=== PATIENT | male | born 1965 | race Caucasian/White ===

== ENCOUNTER 2017-08-01 11:29 | Emergency (ER) | payer OTHER ==
[2017-08-01 11:46] VITALS: TEMP 98.1; BMI 29.7
--- NOTE | 2017-08-01 11:59 | PDOC ---
History of Present Illness - General Chief Complaint: Pain, Acute Stated Complaint: LT SIDE PAIN Time Seen by Provider: 08/01/17 11:59 - History of Present Illness Initial Comments: 08/01/17 12:14 Mr. Wolf is a 51 yo male w/ pmh of HTN and NIDDM who presents for evaluation of sudden onset left sided abdominal pain that started as he was driving into work today. He reports he has never had pain like this before. He had one episode of vomiting before presentation he reports consisted of the food he had eaten and had more vomiting while in the ER bay. He ate one chocolate donut and a pretzel for breakfast. The patient denies chest pain, shortness of breath, headache and dizziness. Denies fever, chills, diarrhea and constipation. Denies dysuria, frequency, urgency and hematuria. Allergies: Amoxicillin Past History - Past Medical History Allergies/Adverse Reactions: Allergies Allergy/AdvReac Type Severity Reaction Status Date / Time amoxicillin Allergy Verified 08/01/17 11:42 Home Medications: Ambulatory Orders Tamsulosin HCl [Flomax] 0.4 mg PO DAILY #7 cap.er.[id number] 08/01/17 COPD: No Diabetes: Yes HTN: Yes - Suicide/Smoking/Psychosocial Hx Smoking History: Never smoked Review of Systems - Review of Systems Comments:: 08/01/17 12:45 GENERAL/CONSTITUTIONAL: No fever or chills. No weakness. HEAD, EYES, EARS, NOSE AND THROAT: No change in vision. No ear pain or discharge. No sore throat. CARDIOVASCULAR: No chest pain or shortness of breath RESPIRATORY: No cough, wheezing, or hemoptysis. GASTROINTESTINAL: +Pain w/ n/v as described. No diarrhea or constipation. GENITOURINARY: No dysuria, frequency, or change in urination. MUSCULOSKELETAL: No joint or muscle swelling or pain. No neck or back pain. SKIN: No rash NEUROLOGIC: No headache, vertigo, loss of consciousness, or change in strength/ sensation. ENDOCRINE: No increased thirst. No abnormal weight change HEMATOLOGIC/LYMPHATIC: No anemia, easy bleeding, or history of blood clots. ALLERGIC/IMMUNOLOGIC: No hives or skin allergy. *Physical Exam - Vital Signs Last Vital Signs Temp Pulse Resp BP Pulse Ox 98.1 F 99 H 23 157/121 98 08/01/17 11:42 08/01/17 11:42 08/01/17 11:42 08/01/17 11:42 08/01/17 11:42 - Physical Exam Comments: 08/01/17 12:47 GENERAL: Awake, alert, and fully oriented, in no acute distress HEAD: No signs of trauma, normocephalic, atraumatic EYES: PERRLA, EOMI, sclera anicteric, conjunctiva clear ENT: Auricles normal inspection, hearing grossly normal, nares patent, oropharynx clear without exudates. Moist mucosa NECK: Normal ROM, supple, no lymphadenopathy, JVD, or masses LUNGS: No distress, speaks full sentences, clear to auscultation bilaterally HEART: Regular rate and rhythm, normal S1 and S2, no murmurs, rubs or gallops, peripheral pulses normal and equal bilaterally. ABDOMEN: +Left flank TTP. Soft, normoactive bowel sounds. No guarding, no rebound. No masses EXTREMITIES: Normal inspection, Normal range of motion, no edema. No clubbing or cyanosis. NEUROLOGICAL: Cranial nerves II through XII grossly intact. Normal speech, normal gait, no focal sensorimotor deficits SKIN: Warm, Dry, normal turgor, no rashes or lesions noted. ED Treatment Course - LABORATORY CBC & Chemistry Diagram: 08/01/17 12:45 08/01/17 12:45 Medical Decision Making - Medical Decision Making 08/01/17 15:06 Mr. Wolf is a 51 yo male w/ pmh as described who presents for evaluation of sudden onset abdominal pain concerning for acute nephrolithiasis. Patient given fluids and morphine for pain control with scan ordered for confirmation. CT significant for 1 to 2 mm ureteral calculus just proximal to UVJ with associated hydronephrosis and perirenal stranding. 08/01/17 15:34 Labs as below significant for elevated creatinine and white count as below. Suspect patient is hemoconcentrated. Urology consulted. 08/01/17 16:05 Discussed patient with urology who will follow outpatient on friday. Patient reports he feels "1000 times better" on repeat exam. Discharging with instructions to f/u with urology for further evaluation. *DC/Admit/Observation/Transfer Diagnosis at time of Disposition: Nephrolithiasis - Discharge Dispostion Disposition: HOME - Referrals Referrals: Chau Yost MD [Staff Physician] - - Patient Instructions Printed Discharge Instructions: DI for Kidney Stones Additional Instructions: Please follow-up with urology on Friday as discussed for further evaluation. Bring lab values and CT read to your appointment. Return to ER if any difficulty urinating, pain not controllable with proscribed medications, or other concerning symptoms. Take all medications as written. - Post Discharge Activity
[2017-08-01] MEDS ORDERED: ONDANSETRON 4 MG/2 ML VIAL IVPB ONE (12:15)
[2017-08-01] MEDS ORDERED: morphine CARPU-JECT 2 MG/1 ML DISP.SYRIN IVPUSH ONE ×3 (12:15→14:36)
[2017-08-01] MEDS ORDERED: SODIUM CHLORIDE 1,000 ML IV STA (12:15)
[2017-08-01] MEDS ORDERED: morphine SULFATE 4 MG/ML VIAL ONE (12:48)
[2017-08-01] MEDS ORDERED: ONDANSETRON 4 MG/2 ML VIAL ONE (12:49)
[2017-08-01 13:01] LABS: BASO % 0.1 % (0-2.0); EOS % 0.5 % (0-4.5); HEMATOCRIT 47.4 % (35.4-49); HEMOGLOBIN 15.9 GM/dL (11.7-16.9); LYMPH % 8.9 % (8-40); MCH 27.1 pg (25.7-33.7); MCHC 33.5 g/dl (32.0-35.9); MEAN CELL VOLUME 80.9 fl (80-96); MEAN PLT VOLUME 8.9 fl (7.5-11.1); NEUT % 86.5 % (42.8-82.8); PLATELET COUNT 242 K/MM3 (134-434); RBC 5.86 M/mm3 (4.00-5.60); RDW 13.2 % (11.9-15.9); WHITE BLOOD COUNT 14.5 K/mm3 (4.0-10.0)
[2017-08-01 13:22] LABS: INR 0.94 (0.82-1.09); PROTHROMBIN TIME (PATIENT) 10.6 SEC (9.7-13.0)
[2017-08-01 13:25] LABS: ACTIVATED PTT 26.6 SECONDS (25.2-36.5)
[2017-08-01 13:38] LABS: ALBUMIN 4.5 g/dl (3.4-5.0); ANION GAP 12 (8-16); BILIRUBIN,TOTAL 0.7 mg/dL (0.2-1.0); BLOOD UREA NITROGEN 24 mg/dL (7-18); CALCIUM 9.7 mg/dL (8.5-10.1); CHLORIDE 106 mmol/L (98-107); CO2 23 mmol/L (21-32); CREATININE 1.6 mg/dL (0.7-1.3); GLUCOSE,RANDOM 135 mg/dL (74-106); POTASSIUM 4.1 mmol/L (3.5-5.1); SGOT/AST 16 U/L (15-37); SGPT/ALT 25 U/L (12-78); SODIUM 141 mmol/L (136-145); TOT PROT 7.9 g/dl (6.4-8.2)
[2017-08-01 13:39] LABS: ALK PHOS 56 U/L (45-117)
[2017-08-01 14:31] LABS: LIPASE 187 U/L (73-393)
[2017-08-01] MEDS ORDERED: TAMSULOSIN HCL 0.4 MG CAP.ER.24H (FP) PO ONE (14:36)
[2017-08-01] MEDS ORDERED: KETOROLAC TROMETHAMINE 15 MG/ML VIAL IVPUSH ONE (14:37)
[2017-08-01] MEDS ORDERED: MORPHINE SULFATE 2 MG/ML VIAL ONE (14:42)
[2017-08-01] MEDS ORDERED: KETOROLAC TROMETHAMINE 30 MG/1 ML VIAL ONE (14:43)
[2017-08-01] MEDS ORDERED: TAMSULOSIN HCL 0.4 MG CAP.ER.24H (FP) ONE (14:43)
[2017-08-01 14:47] LABS: URINE APPEARANCE CLEAR; URINE BILIRUBIN NEGATIVE (<2.0 mg/dL); URINE COLOR YELLOW; URINE GLUCOSE (UA) NEGATIVE (NEGATIVE); URINE KETONE 1+ (NEGATIVE); URINE LEUK ESTERASE NEGATIVE (NEGATIVE); URINE NITRITE NEGATIVE (NEGATIVE); URINE PROTEIN NEGATIVE (NEGATIVE)
[2017-08-01 15:26] LABS: URINE BACTERIA RARE /hpf (NONE SEEN); URINE MUCUS RARE
[2017-08-01 16:20] VITALS: BP 122/67; PULSE 100
--- NOTE | 2017-08-01 19:01 | PDOC ---
Attending Attestation - Resident Resident Name: Laurent Winn - ED Attending Attestation I have performed the following: I have examined & evaluated the patient, The case was reviewed & discussed with the resident, I agree w/resident's findings & plan, Exceptions are as noted - HPI HPI: 08/01/17 19:01 The patient is a 51 year old male accompanied with his son, with a significant past medical history of HTN and NIDDM, who presents to the ED for evaluation of left flank pain. The patient reports severe left flank pain, localized, ranked 10/10 in severity. The patient reports an acute onset of left flank pain after eating a donut and a pretzel this morning. Pt states he normally does not eat in the morning. The patient reports an associated symptom of nausea with an episode of non-bloody emesis. The patient denies a history kidney stones and previous hospitalizations. Pt denies cp, sob, f/c, d/c, headache, dizziness, hematuria, dysuria, urinary frequency, urgency, or incontinence. Allergies: Amoxicillin Social History: No reported alcohol, cigarette, or drug use. Surgical History: Patient denies. PCP: Dr. Adam - Physicial Exam PE: 08/01/17 19:01 GENERAL: (+)Appears uncomfortable. Awake, alert, and fully oriented. HEAD: No signs of trauma EYES: PERRLA, EOMI, sclera anicteric, conjunctiva clear ENT: Auricles normal inspection, hearing grossly normal, nares patent, oropharynx clear without exudates. Moist mucosa NECK: Normal ROM, supple, no lymphadenopathy, JVD, or masses LUNGS: Breath sounds equal, clear to auscultation bilaterally. No wheezes, and no crackles HEART: Regular rate and rhythm, normal S1 and S2, no murmurs, rubs or gallops ABDOMEN: Soft, nontender, normoactive bowel sounds. No guarding, no rebound. No masses EXTREMITIES: Normal range of motion, no edema. No clubbing or cyanosis. No cords , erythema, or tenderness BACK: (+)Left CVA tenderness. NEUROLOGICAL: Normal speech, cranial nerves intact, negative pronator drift, 5/ 5 strength in all 4 extremities, normal sensation to light touch in all 4 extremities, normal cerebellar exam, normal gait, normal reflexes and tone SKIN: Warm, Dry, normal turgor, no rashes or lesions noted.
== END 2017-08-01 16:36 | disposition home or self-care (01) ==
LOC: JER 11:29
PROC: 3E033NZ Introduction of Analgesics, Hypnotics, Sedatives into Peripheral Vein, Percutaneous Approach (ICD-10-PCS; principal; 2017-08-01)
PROC: 3E0333Z Introduction of Anti-inflammatory into Peripheral Vein, Percutaneous Approach (ICD-10-PCS; 2017-08-01)
PROC: 3E033GC Introduction of Other Therapeutic Substance into Peripheral Vein, Percutaneous Approach (ICD-10-PCS; 2017-08-01)
DX: N13.2 Hydronephrosis with renal and ureteral calculous obstruction (principal); I10 Essential (primary) hypertension; E11.9 Type 2 diabetes mellitus without complications; Z79.84 Long term (current) use of oral hypoglycemic drugs
CPT/HCPCS: 36415; 74176; 80053; 81003; 81015; 83605; 83690; 85025; 85610; 85730; 86850; 86900; 86901; 87086; 99282-25; J7030